=== PATIENT | female | born 1975 | race African-American/Black ===

== ENCOUNTER 2017-11-22 19:42 | Emergency (ER) | payer BC, OTHER ==
[~2017-11-22] VITALS: Ht 154.9 cm; Wt 111.0 kg
[2017-11-22] MEDS ORDERED: SODIUM CHLORIDE 0.9% 1,000 ML IV ONE (21:01)
[2017-11-22] MEDS ORDERED: ONDANSETRON HCL 4MG/2ML VIAL IV STA (21:01)
[2017-11-22] MEDS ORDERED: MORPHINE SULFATE 4 MG/ML CPJ (NOT FOR IM USE) IV STA (21:01)
[2017-11-22 21:44] LABS: BASOPHILS % 0.3 % (0.0-2.0); EOSINOPHILS % 0.3 % (0.0-5.0); HEMATOCRIT. 34.6 % (36.0-48.0); HEMOGLOBIN. 10.9 g/dL (12.0-16.0); LYMPHOCYTES % 7.1 % (20.0-50.0); MEAN CORPUSCULAR HEMOGLOBIN 21.4 pg (28.0-32.0); MEAN CORPUSCULAR VOLUME 67.6 fL (81.0-99.0); MEAN PLATELET VOLUME 10.9 fl (7.4-10.4); NEUTROPHILS % 88.3 % (40.0-76.0); PLATELET 293 x1000/uL (130-400); RED BLOOD CELL COUNT 5.12 mill/uL (4.2-5.4); RED CELL DISTRIBUTION WIDTH 18.8 % (11.6-14.6)
[2017-11-22 21:49] LABS: PROTHROMBIN TIME 10.9 sec (9.4-11.6)
[2017-11-22 21:50] LABS: CHLORIDE 104 mEq/L (98-107)
[2017-11-22 22:12] LABS: CLARITY URINE CLEAR (CLEAR); COLOR URINE YELLOW (YELLOW); KETONES URINE TRACE (NEGATIVE); LEUKOCYTE ESTERASE URINE NEGATIVE (NEGATIVE); NITRITE URINE NEGATIVE (NEGATIVE); OCCULT BLOOD URINE NEGATIVE (NEGATIVE); PH URINE 7.5 (4.5-8.0); PROTEIN URINE NEGATIVE (NEGATIVE); UROBILINOGEN URINE 0.2 E.U./dL (0.2-1.0)
[2017-11-22] MEDS ORDERED: KETOROLAC 30MG/ML VIAL IV STA (22:54)
[2017-11-22 23:51] LABS: PLATELET ESTIMATE NORMAL
[2017-11-23] MEDS ORDERED: IOHEXOL-300 100 ML BOTTLE ONE (00:26)
[2017-11-23] MEDS ORDERED: PIPERACILLIN/TAZ 3.375G PREMIX 50 ML IV SCH (03:04)
[2017-11-23] MEDS ORDERED: METRONIDAZOLE 500 MG PREMIX 100 ML IV SCH (03:05)
[2017-11-23 04:33] VITALS: BP 116/70
== END 2017-11-23 04:38 | disposition home or self-care (01) ==
LOC: ER 21:11
DX: K57.32 Diverticulitis of large intestine without perforation or abscess without bleeding (principal); K21.9 Gastro-esophageal reflux disease without esophagitis; F17.200 Nicotine dependence, unspecified, uncomplicated; Z87.11 Personal history of peptic ulcer disease; Z98.890 Other specified postprocedural states
CPT/HCPCS: 36415; 74177; 80053; 81003; 81025; 83690; 85025; 85610; 96361; 96365; 96368; 96375; 99285; J1885; J2405; J2543; J3490; J7030; Q9967; Z7610; J2270

== ENCOUNTER 2018-11-02 21:15 | Emergency (ER) | payer BC ==
[~2018-11-02] VITALS: Ht 154.9 cm; Wt 119.0 kg
[2018-11-03 07:06] VITALS: BP 111/53
== END 2018-11-03 07:07 | disposition home or self-care (01) ==
LOC: ER 21:15
DX: R51 Headache (principal); M79.89 Other specified soft tissue disorders; R29.818 Other symptoms and signs involving the nervous system; R07.89 Other chest pain; M54.9 Dorsalgia, unspecified; E66.01 Morbid (severe) obesity due to excess calories; E11.9 Type 2 diabetes mellitus without complications; I10 Essential (primary) hypertension; F17.200 Nicotine dependence, unspecified, uncomplicated; E03.9 Hypothyroidism, unspecified; K21.9 Gastro-esophageal reflux disease without esophagitis; Z87.11 Personal history of peptic ulcer disease; Z98.890 Other specified postprocedural states; Z68.42 Body mass index [BMI] 45.0-49.9, adult
CPT/HCPCS: 99283